=== PATIENT | female | born 1995 ===

== ENCOUNTER 2017-08-12 22:50 | Emergency (ER) | payer MEDICAID, OTHER ==
[2017-08-12 22:56] VITALS: O2SAT 99
[2017-08-12] MEDS ORDERED: Sodium Chloride 0.9% 1,000 ML IV ONE (23:24)
--- NOTE | 2017-08-12 23:26 | C.PDOC ---
History Of Present Illness 21 year old female who presents to the ER with a complaint of having her menstrual period and suprapubic pain for the past 20 days, associated with nausea. Patient reports she had a similar episode 2 years ago but never again since. Patient reports the pain feels like her usual menstrual cramps. Denies use of control or recent sexual activity. Chief Complaint (Nursing): Abdominal Pain History Per: Patient History/Exam Limitations: no limitations Onset/Duration Of Symptoms: Hrs Current Symptoms Are (Timing): Still Present Location Of Pain/Discomfort: Suprapubic Radiation Of Pain To:: None Quality Of Discomfort: Cramping Associated Symptoms: Nausea. denies: Vomiting Exacerbating Factors: None Alleviating Factors: None Recent travel outside of the [place]: No Abnormal Vaginal Bleeding: Yes Past Medical History Reviewed: Historical Data, Nursing Documentation, Vital Signs Vital Signs: Last Vital Signs Temp 98.2 F 08/12/17 22:53 Pulse 83 08/12/17 22:53 Resp 16 08/12/17 22:53 BP 118/75 08/12/17 22:53 Pulse Ox 99 08/13/17 00:13 - Medical History PMH: No Chronic Diseases Surgical History: No Surg Hx - [facility] Procedures EXTRACTION OF POC, LOW CERVICAL, OPEN APPROACH (01/30/17) INJECT/INFUSE NEC (10/01/14) MONITORING OF POC, CARDIAC RATE, HOME INSPECTOR APPROACH (01/30/17) Family History: States: Unknown Family Hx - Social History Hx Alcohol Use: Yes Hx Substance Use: No - Immunization History Hx Tetanus Toxoid Vaccination: No Hx Influenza Vaccination: Yes Hx Pneumococcal Vaccination: No Review Of Systems Constitutional: Negative for: Fever, Chills Gastrointestinal: Positive for: Nausea, Abdominal Pain. Negative for: Vomiting Genitourinary: Positive for: Vaginal Bleeding Physical Exam - Physical Exam Appears: Non-toxic, No Acute Distress Skin: Normal Color, Warm, Dry Head: Atraumatic, Normacephalic Eye(s): bilateral: Normal Inspection, EOMI Oral Mucosa: Moist Neck: Normal, Supple Lymphatic: No Adenopathy Chest: Symmetrical, No Tenderness Cardiovascular: Rhythm Regular Respiratory: Normal Breath Sounds, No Rales, No Rhonchi, No Wheezing Gastrointestinal/Abdominal: Bowel Sounds (Active), Soft, Tenderness (Mild suprapubic), No Guarding, No Rebound Pelvic: Normal External Exam, Normal Speculum Exam, No Vaginal Discharge, No Cervical Motion Tenderness, No Adnexal Tenderness, No Mass, No Tender Uterus, Other (5-10cc of clotted blood. Uterus within normal limits, retroverted. No cultures taken.) Pulses: Left Radial: Normal, Right Radial: Normal Neurological/Psych: Oriented x3, Normal Speech, Normal Cognition ED Course And Treatment - Laboratory Results Result Diagrams: 08/12/17 23:40 08/12/17 23:40 Urine POC: Negative O2 Sat by Pulse Oximetry: 99 Progress Note: Pt with dysfunctional uterine bleeding,microcytic anemia.Will initiate on iron therapy,refer to gynecology for f/u Medical Decision Making Medical Decision Making: Plan: * Blood work * Urinalysis * IV fluids HCG is negative, CBC shows evidence of mild microcytic anemia at 10.3. Patient will be discharged home with dysfunctional uterine bleeding, started on iron replacement, and advised to follow up at the clinic. Disposition - Disposition Referrals: Kamlesh Wilkerson MD [Staff Provider] - Disposition: HOME/ ROUTINE Disposition Time: 00:05 Condition: GOOD Prescriptions: Ferrous Sulfate 325 mg PO DAILY #30 tablet Forms: [employer] (Maori) Print Language: POLISH - Clinical Impression Clinical Impression: Dysfunctional uterine bleeding - Scribe Statement The provider has reviewed the documentation as recorded by the Scribviraj Neri All medical record entries made by the Scribe were at my direction and personally dictated by me. I have reviewed the chart and agree that the record accurately reflects my personal performance of the history, physical exam, medical decision making, and the department course for this patient. I have also personally directed, reviewed, and agree with the discharge instructions and disposition.
[2017-08-12 23:43] LABS: BASO # 0.1 K/uL (0.0-0.2); BASO % 0.6 % (0.0-2.0); EOS # 0.5 K/uL (0.0-0.7); EOS % 4.3 % (0.0-4.0); HEMATOCRIT 31.7 % (34.0-47.0); LYMPH # 3.1 K/uL (1.0-4.3); LYMPH % 29.9 % (20.0-40.0); MEAN CELL VOLUME 77.3 fL (81.0-99.0); MEAN CORPUSCULAR HEMOGLOBIN 25.2 pg (27.0-31.0); MEAN CORPUSCULAR HGB CONC 32.5 g/dL (33.0-37.0); MEAN PLATELET VOLUME 8.4 fL (7.2-11.7); MONO # 0.7 K/uL (0.0-0.8); MONO % 6.4 % (0.0-10.0); RED CELL DISTRIBUTION WIDTH 15.5 % (11.5-14.5); WHITE BLOOD COUNT 10.5 K/uL (4.8-10.8)
[2017-08-12 23:52] LABS: CHLORIDE 101 mmol/L (98-107); POTASSIUM 3.5 mmol/L (3.6-5.2); SODIUM 135 mmol/L (132-148)
[2017-08-12 23:54] LABS: BILIRUBIN,TOTAL 0.3 mg/dL (0.2-1.3); GFR AFRICAN-AMERICAN > 60
[2017-08-12 23:55] LABS: ALB/GLOB RATIO 1.1 (1.0-2.1); ALKALINE PHOSPHATASE 62 U/L (38-126); ALT/SGPT 34 U/L (9-52); AST/SGOT 24 U/L (14-36); BLOOD UREA NITROGEN 9 mg/dL (7-17); CALCIUM 8.6 mg/dl (8.6-10.4); CARBON DIOXIDE 27 mmol/L (22-30); GLUCOSE,RANDOM 89 mg/dL (65-105); TOTAL PROTEIN 7.1 g/dL (6.3-8.3)
[2017-08-13] MEDS ORDERED: Sodium Chloride 0.9% 1,000 ML ONE (00:05)
[2017-08-13 00:21] VITALS: BP 118/77; PULSE 71; RESP 18; TEMP 98.3
== END 2017-08-13 00:21 | disposition home or self-care (01) ==
LOC: C.ER 22:50
DX: N93.8 Other specified abnormal uterine and vaginal bleeding (principal)